=== PATIENT | female | born 1995 | race Caucasian/White ===

== ENCOUNTER 2019-05-14 12:41 | Emergency (ER) | payer OTHER ==
[~2019-05-14] VITALS: Ht 157.5 cm; Wt 60.0 kg
[~2019-05-14 12:41] MED LIST: ALPR2TAB PO
[2019-05-14 12:51] VITALS: Ht 157.5 cm; Wt 60.0 kg
[2019-05-14 15:30] VITALS: BP 128/83
[2019-05-14] MEDS ORDERED: ALPRAZOLAM 1 MG TAB PO ONE (16:30)
[2019-05-14 18:42] VITALS: PULSE 72; RESP 16
== END 2019-05-14 18:42 | disposition home or self-care (01) ==
LOC: E/R 12:41
DX: F41.0 Panic disorder [episodic paroxysmal anxiety] (principal); F17.210 Nicotine dependence, cigarettes, uncomplicated; F14.280 Cocaine dependence with cocaine-induced anxiety disorder
CPT/HCPCS: 71045; 80048; 80307; 81025; 84484; 84703; 85025; 93005